=== PATIENT | female | born 1945 | race Caucasian/White ===

== ENCOUNTER → 2018-02-04 | Outpatient (CLI) | payer OTHER ==
[~2018-02-04] MED LIST: CLOT1TC TOP; DIAZ5 PO; ESTEST.62T PO; LISI20 PO; LISI5 PO; NAPR500 PO; OXYACE5T PO; SULTRIDS PO; VALS80 PO
== END ==
LOC: LAB EV 10:23 → LAB SHORT 10:23
DX: N39.0 Urinary tract infection, site not specified (principal)
CPT/HCPCS: 87077; 87086; 87186

== ENCOUNTER 2018-05-23 07:03 | Emergency (ER) | payer OTHER ==
[~2018-05-23] VITALS: Ht 157.5 cm; Wt 69.8 kg
[2018-05-23] MEDS ORDERED: PRED5 (07:24)
[2018-05-23] MEDS ORDERED: LEVSOD150 PO (07:25)
[2018-05-23] MEDS ORDERED: Crestor20 MG PO (07:25)
[2018-05-23] MEDS ORDERED: FAMO10 PO (07:25)
[2018-05-23] MEDS ORDERED: DIPH50 (07:25)
[2018-05-23] MEDS ORDERED: AMLO5 PO (07:25)
[2018-05-23] MEDS ORDERED: TOLT4 PO (07:25)
[2018-05-23] MEDS ORDERED: TRAM50 (07:26)
[2018-05-23] MEDS ORDERED: LISI20 PO (07:26)
[2018-05-23] MEDS ORDERED: CARV25 PO (07:26)
[2018-05-23] MEDS ORDERED: MAGNESIUM250 MG PO (07:27)
== END 2018-05-23 09:00 | disposition home or self-care (01) ==
LOC: ER 07:03
DX: T78.3XXA Angioneurotic edema, initial encounter (principal); T46.4X5A Adverse effect of angiotensin-converting-enzyme inhibitors, initial encounter; I10 Essential (primary) hypertension; E03.9 Hypothyroidism, unspecified; Z87.891 Personal history of nicotine dependence; Z79.899 Other long term (current) drug therapy
CPT/HCPCS: 96361; 96374; 96375; 99283-25; J1200; J2930; J3490; J7030